=== PATIENT | female | born 1995 | race Two or more races ===

== ENCOUNTER 2019-08-09 09:03 | Emergency (ER) | payer SELFPAY ==
[~2019-08-09] VITALS: Ht 167.6 cm; Wt 84.8 kg
--- NOTE | 2019-08-09 09:46 | NUR ---
PT HAS CO OF ABDOMINAL PAIN, VAGINAL DISCHARGE W ODOR FOR 5 DAYS. MD AT BEDSIDE DISCUSSING POC. UA SAMPLE PROVIDED
[2019-08-09 10:04] LABS: MICROSCOPIC AUTO
[2019-08-09 10:09] LABS: BASOPHILS # (AUTO) 0.05 x10^3/uL (0-0.1); BASOPHILS % (AUTO) 1 % (0-1); EOSINOPHILS # (AUTO) 0.08 x10^3/uL (0-0.4); EOSINOPHILS % (AUTO) 1 % (1-7); LYMPHOCYTES # (AUTO) 2.26 x10^3/uL (1-3.4); LYMPHOCYTES % (AUTO) 22 % (22-44); MD NO; MEAN CORPUSCULAR HEMOGLOBIN 30.7 pg (27.0-34.8); MEAN CORPUSCULAR HGB CONC 33.5 g/dL (32.4-35.8); MEAN CORPUSCULAR VOLUME 91.7 fL (80-100); MEAN PLATELET VOLUME 8.6 fL (7.4-10.4); MONOCYTES # (AUTO) 0.51 x10^3/uL (0.2-0.8); MONOCYTES % (AUTO) 5 % (2-9); NEUTROPHILS # (AUTO) 7.24 x10^3/uL (1.8-6.8); NEUTROPHILS % (AUTO) 72 % (42-75); PLATELET COUNT 272 x10^3/uL (130-400); RED BLOOD COUNT 4.97 x10^6/uL (3.82-5.3); RED CELL DISTRIBUTION WIDTH 13.7 % (9.6-15.2)
[2019-08-09 10:14] LABS: CLUE CELLS NONE SEEN (NONE SEEN); WET PREP WBCS MANY (FEW)
[2019-08-09 10:20] LABS: ALANINE AMINOTRANSFERASE 28 U/L (12-78); ALBUMIN 3.8 g/dL (3.4-5.0); ANION GAP 6 mmol/L (5-15); CALCIUM 8.5 mg/dL (8.5-10.1); CHLORIDE 109 mmol/L (98-107); CREATININE 0.76 mg/dL (0.55-1.02)
[2019-08-09 10:25] LABS: ALKALINE PHOSPHATASE 95 U/L (45-117); BILIRUBIN,TOTAL 0.6 mg/dL (0.2-1.0)
[2019-08-09] MEDS ORDERED: SODIUM CHLORIDE FLUSH 10ML SYR IVF ONE (10:30)
[2019-08-09] MEDS ORDERED: ACETAMINOPHEN 325 MG TABLET ONE (10:57)
[2019-08-09] MEDS ORDERED: ACETAMINOPHEN 325 MG TABLET PO ONE (11:00)
--- NOTE | 2019-08-09 11:09 | NUR ---
PT RESTING. IV ESTABLISHED FOR CT. MEDICATED W TYLENOL FOR HEADACHE
--- NOTE | 2019-08-09 11:40 | NUR ---
PT IN CT
[2019-08-09] MEDS ORDERED: OMNIPAQUE 350 MG/ML, 100ML BOTTLE ONE (11:51)
[2019-08-09 11:59] VITALS: BP 101/46
--- NOTE | 2019-08-09 11:59 | NUR ---
PT BACK IN ROOM, FAMILY AT BEDSIDE. NO NEEDS AT THIS TIME.
--- NOTE | 2019-08-09 12:44 | NUR ---
Patient/Caregiver given discharge instructions and they have confirmed that they understand the instructions. Patient ambulatory with steady gait.
== END 2019-08-09 12:47 | disposition home or self-care (01) ==
LOC: ED 10:08
DX: N30.00 Acute cystitis without hematuria (principal); N83.291 Other ovarian cyst, right side; R10.31 Right lower quadrant pain
CPT/HCPCS: 36415; 74177; 80053; 81001; 83690; 84702; 85025; 87086; 87210; 87491; 87591; 87808; 99284; Q9967

== ENCOUNTER 2021-02-10 17:38 | Emergency (ER) | payer SELFPAY ==
[~2021-02-10] VITALS: Ht 157.5 cm; Wt 85.2 kg
--- NOTE | 2021-02-10 18:43 | NUR ---
PT TO ROOM FROM LOBBY
--- NOTE | 2021-02-10 18:50 | NUR ---
pt resting in gurney, placed on monitors. pt and family is afghan speakig only. to assess with engineering equipment operator is found
--- NOTE | 2021-02-10 19:23 | NUR ---
japanese interpreter service used. pt states pain in bilat lower ex. for 4 days and vaginal bleeding for about a week. pt states she has nausea but no vomiting. pt ambulated to restroom for urine sample. awaiting erp eval
[2021-02-10] MEDS ORDERED: SODIUM CHLORIDE FLUSH 10ML SYR IVF ONE (20:00)
[2021-02-10 20:28] LABS: BASOPHILS % (AUTO) 1 % (0-1); EOSINOPHILS % (AUTO) 1 % (1-7); LYMPHOCYTES % (AUTO) 23 % (22-44); MEAN CORPUSCULAR HEMOGLOBIN 30.1 pg (27.0-34.8); MEAN CORPUSCULAR HGB CONC 33.3 g/dL (32.4-35.8); MEAN PLATELET VOLUME 8.7 fL (7.4-10.4); MONOCYTES % (AUTO) 6 % (2-9); NEUTROPHILS % (AUTO) 70 % (42-75); PLATELET COUNT 259 x10^3/uL (130-400); RED BLOOD COUNT 4.75 x10^6/uL (3.82-5.3); RED CELL DISTRIBUTION WIDTH 14.2 % (9.6-15.2)
[2021-02-10 20:31] LABS: MICROSCOPIC AUTO
[2021-02-10 20:32] LABS: ALANINE AMINOTRANSFERASE 27 U/L (12-78); ALBUMIN 3.9 g/dL (3.4-5.0); ANION GAP 7 mmol/L (5-15); CALCIUM 8.9 mg/dL (8.5-10.1); CHLORIDE 107 mmol/L (98-107)
[2021-02-10 20:50] LABS: ALKALINE PHOSPHATASE 93 U/L (45-117); BILIRUBIN,TOTAL 0.3 mg/dL (0.2-1.0); CREATININE 0.67 mg/dL (0.55-1.02); TOTAL PROTEIN 8.1 g/dL (6.4-8.2)
[2021-02-11 00:17] VITALS: BP 102/61
--- NOTE | 2021-02-11 00:23 | NUR ---
erp at bedside to explain pelvic exam at this time
--- NOTE | 2021-02-11 00:53 | NUR ---
report given to jonathan dodd
--- NOTE | 2021-02-11 01:16 | NUR ---
pt to be discharged.
[2021-02-12] MEDS ORDERED: RIVA20TA PO (22:45)
== END 2021-02-11 01:36 | disposition home or self-care (01) ==
LOC: ED 21:48
DX: O26.891 Other specified pregnancy related conditions, first trimester (principal); Z32.01 Encounter for pregnancy test, result positive; R10.84 Generalized abdominal pain; Z3A.01 Less than 8 weeks gestation of pregnancy
CPT/HCPCS: 36415; 76801; 80053; 81001; 83690; 84702; 84703; 85025; 86901; 87086; 99285

== ENCOUNTER 2021-02-12 17:23 | Observation (INO) | payer SELFPAY ==
[~2021-02-12] VITALS: Ht 160 cm; Wt 88.0 kg
--- NOTE | 2021-02-12 17:40 | NUR ---
[facility] SUPERVISOR EXTRUSION [id number] UTILIZED FOR TRIAGE. SEE PAPER CHARTING,.
--- NOTE | 2021-02-12 17:45 | NUR ---
PATIENT AMBULATED TO BATHROOM FOR URINE SAMPLE.
--- NOTE | 2021-02-12 17:52 | NUR ---
PATIENT WALKED BACK FROM TRIAGE WITH CHIEF C/O VAGINAL BLEEDING AND LOWER ABD PAIN. PATIENT SEEN FOR THE SAME 2 DAYS AGO, AND TOLD IF SHE WAS STILL HAVING PAIN TO COME BACK TO THE ED. PATIENT REPORTS PAIN IN HER "UTERUS" AND SHE IS GOING THROUGH ABOUT 6 PADS PER DAY. [employer]IMCO, CONNECTED TO MONITOR, VSS, CALL LIGHT WITHIN REACH. [employer] USED FOR INTERPRETATION. Addendum: 02/12/21 at 1759 by STEPHANIE PATIENT REPORTS WHEN SHE WAS HERE A COUPLE DAYS AGO TOLD SHE IS , UNKNOWN GETSTATIONAL AGE. PATIENT TAKES CONTRACEPTIVE.
--- NOTE | 2021-02-12 18:50 | NUR ---
REPORT TO VAISHNAVI LOPEZ FOR TRANSFER OF PATIENT CARE.
[2021-02-12] MEDS ORDERED: SODIUM CHLORIDE FLUSH 10ML SYR IVF ONE (19:00)
[2021-02-12 19:05] LABS: BASOPHILS % (AUTO) 0 % (0-1); EOSINOPHILS % (AUTO) 1 % (1-7); LYMPHOCYTES % (AUTO) 26 % (22-44); MEAN CORPUSCULAR HEMOGLOBIN 30.2 pg (27.0-34.8); MEAN CORPUSCULAR HGB CONC 33.5 g/dL (32.4-35.8); MEAN PLATELET VOLUME 8.3 fL (7.4-10.4); MONOCYTES % (AUTO) 5 % (2-9); NEUTROPHILS % (AUTO) 67 % (42-75); PLATELET COUNT 261 x10^3/uL (130-400); RED BLOOD COUNT 4.41 x10^6/uL (3.82-5.3); RED CELL DISTRIBUTION WIDTH 14.3 % (9.6-15.2)
[2021-02-12 19:20] LABS: ALBUMIN 3.5 g/dL (3.4-5.0); CALCIUM 8.7 mg/dL (8.5-10.1); CHLORIDE 109 mmol/L (98-107); CREATININE 0.66 mg/dL (0.55-1.02)
--- NOTE | 2021-02-12 19:28 | NUR ---
PT TO US NOW
[2021-02-12 19:36] LABS: ANION GAP 5 mmol/L (5-15)
--- NOTE | 2021-02-12 21:16 | NUR ---
PT AMBULATED TO THE BR W/ A STEADY GAIT.
--- NOTE | 2021-02-12 22:17 | NUR ---
COVID SWAB OBTAINED AND WALKED TO LAB. PIV STARTED. PT UPDATED ON POC FOR OR.
[2021-02-12] MEDS ORDERED: SODIUM CHLORIDE 0.9% 1,000 ML IV ONE (22:30)
[2021-02-12] MEDS ORDERED: SODIUM CHLORIDE FLUSH 10ML SYR IVF PRN (22:30)
[2021-02-12] MEDS ORDERED: RIVA20TA PO (22:45)
--- NOTE | 2021-02-12 23:10 | NUR ---
LAST PO AT 1400 TODAY
--- NOTE | 2021-02-12 23:15 | NUR ---
REPORT TO OR. PT RESTING ON Call Loop W/ CALL LIGHT IN REACH AND SIDE RAILS UPX2. [employer]IM[employer] GOODWIN.
[2021-02-12 23:17] LABS: BASOPHILS % (AUTO) 1 % (0-1); EOSINOPHILS % (AUTO) 1 % (1-7); LYMPHOCYTES % (AUTO) 33 % (22-44); MEAN CORPUSCULAR HEMOGLOBIN 30.4 pg (27.0-34.8); MEAN CORPUSCULAR HGB CONC 33.9 g/dL (32.4-35.8); MEAN PLATELET VOLUME 8.1 fL (7.4-10.4); MONOCYTES % (AUTO) 6 % (2-9); NEUTROPHILS % (AUTO) 59 % (42-75); PLATELET COUNT 249 x10^3/uL (130-400); RED BLOOD COUNT 4.51 x10^6/uL (3.82-5.3); RED CELL DISTRIBUTION WIDTH 14.3 % (9.6-15.2)
--- NOTE | 2021-02-12 23:23 | NUR ---
PT TO OR. AWAKE AND ALERT, RESP EVEN AND UNLABORED, NADN.
[2021-02-12] MEDS ORDERED: MIDAZOLAM 1 MG/ML, 2ML ONE (23:25)
[2021-02-12] MEDS ORDERED: FENTANYL PF 100 MCG/2ML ONE (23:25)
[2021-02-12] MEDS ORDERED: BUPIVACAINE/PF 0.25% ONE (23:34)
[2021-02-12] MEDS ORDERED: EPINEPHRINE 1 MG/ML, 1ML ONE (23:34)
[2021-02-12 23:43] LABS: INTERNATIONAL NORMALIZED RATIO 0.94 (0.93-1.1); PROTHROMBIN TIME 10.1 Seconds (9.6-11.5)
[2021-02-13] MEDS ORDERED: OXYcodone 5 MG/5 ML ORAL.SOL UDC PO PRN
[2021-02-13] MEDS ORDERED: MIDAZOLAM 1 MG/ML, 2ML IV PRN
[2021-02-13] MEDS ORDERED: MEPERIDINE/PF 25MG/0.5ML IVPush PRN
[2021-02-13] MEDS ORDERED: FENTANYL PF 100 MCG/2ML IV PRN
[2021-02-13] MEDS ORDERED: PROMETHAZINE 25 MG/ML, 1ML IVPush PRN
[2021-02-13] MEDS ORDERED: ACETAMINOPHEN 325 MG TABLET PO PRN
[2021-02-13] MEDS ORDERED: HYDROmorphone 1 MG/ML, 1ML INJ IVPush PRN
[2021-02-13] MEDS ORDERED: SUCCINYLCHOLINE 20 MG/ML, 10ML ONE (00:30)
[2021-02-13] MEDS ORDERED: LIDOCAINE-MPF 2% ,5ML ONE (00:30)
[2021-02-13] MEDS ORDERED: ROCURONIUM 10MG/ML,5ML ONE (00:30)
[2021-02-13] MEDS ORDERED: ONDANSETRON 2MG/ML, 2ML ONE (00:30)
[2021-02-13] MEDS ORDERED: GLYCOPYRROLATE 0.2MG/1ML, 5ML ONE (00:30)
[2021-02-13] MEDS ORDERED: PROPOFOL 10 MG/ML, 20ML ONE (00:30)
[2021-02-13] MEDS ORDERED: KETOROLAC 30 MG/1 ML ONE (00:30)
[2021-02-13] MEDS ORDERED: CEFAZOLIN 1,000 MG ONE (00:30)
[2021-02-13] MEDS ORDERED: NEOSTIGMINE 1 MG/ML, 10ML ONE (00:30)
[2021-02-13] MEDS ORDERED: MEPERIDINE/PF 25MG/ML,1ML ONE (01:05)
[2021-02-13] MEDS ORDERED: ACETAMINOPHEN 650 MG/20.3 ML UDC ONE (01:05)
[2021-02-13] MEDS ORDERED: OXYcodone 5 MG/5 ML ORAL.SOL UDC ONE (01:05)
[2021-02-13 01:45] VITALS: BP 103/57
[2021-02-13 02:00] VITALS: BP 103/57
[2021-02-13] MEDS ORDERED: morphine SULFATE 10 MG/ML, 1ML IV PRN (04:00)
[2021-02-13] MEDS ORDERED: LACTATED RINGERS 500 ML IVBOLUS ONE (04:00)
[2021-02-13] MEDS ORDERED: ONDANSETRON 2MG/ML, 2ML IV PRN (04:00)
[2021-02-13] MEDS ORDERED: LACTATED RINGERS 1,000 ML IV SCH (04:00)
[2021-02-13] MEDS ORDERED: OXYcodone/APAP 5/325MG TABLET PO PRN (04:00)
[2021-02-13] MEDS ORDERED: IBUPROFEN 600 MG TABLET PO PRN (04:00)
[2021-02-13 04:31] VITALS: BP 105/67
[2021-02-13 06:27] VITALS: BP 100/59
[2021-02-13] MEDS ORDERED: FLUCONAZOLE 100 MG TABLET ONE (09:26)
[2021-02-13] MEDS ORDERED: IBUP-1222 PO (09:28)
[2021-02-13] MEDS ORDERED: FLUCONAZOLE 50 MG TABLET PO ONE (09:30)
[2021-02-13 10:00] VITALS: BP 112/66
== END 2021-02-13 10:32 | disposition home or self-care (01) ==
LOC: OR 02-13 02:03 → INTOOBSV 02-13 02:53 → 4NE 02-13 02:53 → DCLOUNGE 02-13 10:08
PROVIDERS: ADMIT Obstetrics & Gynecology; ATTEND Obstetrics & Gynecology
DX: O00.101 Right tubal pregnancy without intrauterine pregnancy (principal); Z20.822 Contact with and (suspected) exposure to COVID-19; I82.402 Acute embolism and thrombosis of unspecified deep veins of left lower extremity; K66.1 Hemoperitoneum; Z79.01 Long term (current) use of anticoagulants; Z97.5 Presence of (intrauterine) contraceptive device; Z79.899 Other long term (current) drug therapy
CPT/HCPCS: 36415; 59151; 76801; 80048; 82040; 84702; 85025; 85610; 86850; 86900; 87635; 88305; 96360; 96361; 99284; G0378; J0330; J0690; J1885; J2175; J2250; J2405; J2704; J2710; J3010; J3490; J7030; J7120; J0171